=== PATIENT | female | born 1980 ===

== ENCOUNTER 2018-09-18 07:08 | Day surgery (SDC) | payer OTHER ==
[~2018-09-18 07:08] MED LIST: KETO10TA2 PO
[2018-09-18] MEDS ORDERED: PERCOCET 5-3251 EACH PO (14:10)
== END 2018-09-18 17:54 | disposition home or self-care (01) ==
LOC: CIR.AMB 07:08 → EDSTATUS 11:30 → SURH 11:30 → CIR.AMB 17:54
DX: N83.02 Follicular cyst of left ovary (principal); N73.6 Female pelvic peritoneal adhesions (postinfective)